=== PATIENT | male | born 1975 | race Caucasian/White ===

== ENCOUNTER 2019-12-02 19:54 | Emergency (ER) | payer MEDICAID ==
[2019-12-02 20:19] VITALS: BP 157/91; PULSE 88
[2019-12-02] MEDS ORDERED: Orphenadrine 100 MG Tab.ER PO ONE (20:32)
[2019-12-02] MEDS ORDERED: HYDROmorphone 1 MG/ML Syringe IM ONE (20:32)
[2019-12-02] MEDS ORDERED: Dexamethasone 10 MG/ML SDV IM ONE (20:32)
--- NOTE | 2019-12-02 20:38 | EDM.PDOC ---
ED HPI GENERAL MEDICAL PROBLEM - General Chief Complaint: Back Pain or Injury Stated Complaint: LOWER BACK AND RIGHT HIP PAIN Time Seen by Provider: 12/02/19 20:17 Source of Information: Reports: Patient, RN Notes Reviewed History Limitations: Reports: No Limitations - History of Present Illness INITIAL COMMENTS - FREE TEXT/NARRATIVE: Patient is a 44-year-old male who presents to the ED for the evaluation of lower back and hip pain. Patient notes that his right lower back and right hip has been painful for the last 5 days, he states that he was just watching TV on Friday, and then he states he could not get up from the couch. A few days prior to this, he does note that he was she rocking his garage, so he was doing a lot of stooping and bending, otherwise he denies any other trauma to the area. Patient notes that he has a sharp shooting pain into his right groin as well. He states that he has been taking handfuls ibuprofen for pain relief however this is not been providing much relief either, he states that he has been to the chiropractor every day for management and also has not been providing much pain relief. He notes that he is scheduled for massage on Friday as well. He denies saddle anesthesia, and is not having any loss of bowel or bladder, he has no abdominal pain. He notes that he is not able to move much at all, as he feels he is just stiff. Further notes he has not been able to get any sleep for the past few nights due to the pain. He notes that he does have a primary care provider, but cannot remember her name and states that she works out of the [facility]. Right Hip Pain Score (Numeric/FACES): 9 - Related Data Allergies Allergy/AdvReac Type Severity Reaction Status Date / Time No Known Allergies Allergy Verified 12/02/19 20:19 Home Meds: Home Meds Orphenadrine [Norflex] 100 mg PO BID PRN #20 tab 12/02/19 [Rx] predniSONE 20 mg PO ASDIRECTED #15 tab 12/02/19 [Rx] Past Medical History Gastrointestinal History: Reports: GERD - Past Surgical History HEENT Surgical History: Reports: Other (See Below) Other HEENT Surgeries/Procedures: reports lump removed from ear Musculoskeletal Surgical History: Reports: Other (See Below) Other Musculoskeletal Surgeries/Procedures:: arm surgery Social & Family History - Family History Family Medical History: Noncontributory - Tobacco Use Smoking Status *Q: Never Smoker ED ROS GENERAL - Review of Systems Review Of Systems: See Below Constitutional: Denies: Fever, Chills Respiratory: Denies: Shortness of Breath Cardiovascular: Denies: Chest Pain GI/Abdominal: Denies: Abdominal Pain, Constipation, Diarrhea, Nausea, Vomiting : Denies: Dysuria, Flank Pain, Frequency, Urgency Musculoskeletal: Reports: Back Pain (R lower back/hip/groin), Muscle Stiffness Skin: Denies: Bruising Neurological: Denies: Numbness, Tingling ED EXAM,LOWER BACK PAIN/INJURY - Physical Exam Exam: See Below Exam Limited By: No Limitations General Appearance: Alert, WD/WN, No Apparent Distress (Pt is sitting in chair in ED room, he appears to be in a moderate amount of pain) Respiratory/Chest: No Respiratory Distress, Lungs Clear, Normal Breath Sounds, No Accessory Muscle Use, Chest Non-Tender Cardiovascular: Normal Peripheral Pulses, Regular Rate, Rhythm, No Edema, No Murmur GI/Abdominal: Normal Bowel Sounds, Soft, Non-Tender, No Distention, No Mass Back Exam: Normal Inspection, Decreased Range of Motion (d/t pain), Muscle Spasm (diffuse throughout right lower back) Extremities: Normal Inspection, Normal Capillary Refill Neurological: Alert, Normal Mood/Affect, Normal Dorsiflexion, Normal Plantar Flexion, Normal Gait, Normal Reflexes, No Motor/Sensory Deficits, Oriented x 3, Straight Leg Raise (R). No: Straight Leg Raise (L), Saddle Anesthesia Psychiatric: Normal Affect, Normal Mood Skin Exam: Warm, Dry, Intact, Normal Color, No Rash Course - Vital Signs Last Recorded V/S: Last Vital Signs Temp 98.4 F 12/02/19 20:16 Pulse 88 12/02/19 20:16 Resp 16 12/02/19 20:16 BP 157/91 H 12/02/19 20:16 Pulse Ox 95 12/02/19 20:16 - Orders/Labs/Meds Meds: Medications Discontinued Medications Generic Name Dose Route Start Last Admin Trade Name Freq PRN Reason Stop Dose Admin Dexamethasone 10 mg 12/02/19 20:32 Dexamethasone IM 12/02/19 20:33 ONETIME ONE Hydromorphone HCl 1 mg 12/02/19 20:32 Dilaudid IM 12/02/19 20:33 ONETIME ONE Orphenadrine Citrate 100 mg 12/02/19 20:32 Norflex PO 12/02/19 20:33 ONETIME ONE - Re-Assessments/Exams Free Text/Narrative Re-Assessment/Exam: 12/02/19 20:38 Patient presents to the ED for the evaluation of lower back pain. I do believe that most of his pain is sciatic in nature, he will get a 10 mg IM dose of dexamethasone, 100 mg p.o. Norflex, and 1 mg IM Dilaudid for initial management. Patient will be prescribed an outpatient burst of prednisone and Norflex as needed for further muscle spasms. Departure - Departure Time of Disposition: 20:38 Disposition: Home, Self-Care 01 Condition: Fair Clinical Impression: Lower back pain Qualifiers: Chronicity: acute Back pain laterality: right Sciatica presence: with sciatica Sciatica laterality: sciatica of right side Qualified Code(s): M54.41 - Lumbago with sciatica, right side - Discharge Information *PRESCRIPTION DRUG MONITORING PROGRAM REVIEWED*: No *COPY OF PRESCRIPTION DRUG MONITORING REPORT IN PATIENT TATA: No Prescriptions: Orphenadrine [Norflex] 100 mg PO BID PRN #20 tab PRN Reason: Spasms predniSONE 20 mg PO ASDIRECTED #15 tab Instructions: Sciatica, [id number] Referrals: PCP,None [Primary Care Provider] - Forms: ED Department Discharge Additional Instructions: You have been evaluated in the ED for your right sided lower back pain. Your symptoms are consistent with Sciatica in nature. You were given a dose of IM steroids, a muscle relaxer, and a pain medication at tonight's visit. You were given a prescription for outpatient steroids, and the muscle relaxer for further pain relief. Prescriptions were electronic prescribed to the [place] [facility] located in the [facility]. Please use ice/heat as tolerated to the affected area. You may take Tylenol 500 mg or ibuprofen 600mg q6 hrs for pain relief. Please do so until you have a tolerable level of pain with activity. Do not exceed 4000mg Tylenol or 3200mg ibuprofen in a 24 hour time period. Please return to ED if your symptoms should change or worsen. Sepsis Event Note - Evaluation Sepsis Screening Result: No Definite Risk - Focused Exam Vital Signs: Vital Signs Temp Pulse Resp BP Pulse Ox 12/02/19 20:16 98.4 F 88 16 157/91 H 95 Date Exam was Performed: 12/02/19 Time Exam was Performed: 20:41
== END 2019-12-02 21:10 | disposition home or self-care (01) ==
LOC: JD.ED 19:54
DX: M54.41 Lumbago with sciatica, right side (principal)
CPT/HCPCS: 96372; 99283; A9270; J1100; J1170

== ENCOUNTER 2023-03-20 16:35 | Emergency (ER) | payer MEDICAID ==
[2023-03-20] MEDS ORDERED: Ondansetron 4 MG/2 ML SDV IVPUSH ONE (17:13)
[2023-03-20] MEDS ORDERED: Iopamidol 612 MG/ML 100 ML Bottle IVPUSH ONE (18:08)
[2023-03-20 19:32] VITALS: BP 120/77; PULSE 84
== END 2023-03-20 19:32 | disposition home or self-care (01) ==
LOC: JD.ED 16:35
DX: R14.1 Gas pain (principal); F17.210 Nicotine dependence, cigarettes, uncomplicated
CPT/HCPCS: 36415; 74177; 80053; 83690; 85025; 86140; 96374; 99284; J2405; Q9967

== ENCOUNTER 2023-03-25 08:54 | Day surgery (SDC) | payer MEDICAID ==
[2023-03-25] MEDS ORDERED: Lactated Ringers 1,000 ML IV SCH (09:30)
[2023-03-25] MEDS ORDERED: fentaNYL 100 MCG/2 ML SDV IVPUSH PRN (10:29)
[2023-03-25] MEDS ORDERED: Ondansetron 4 MG/2 ML SDV IVPUSH PRN (10:29)
[2023-03-25] MEDS ORDERED: Sugammadex Sodium 200 MG/2 ML VIAL ONE (11:11)
[2023-03-25] MEDS ORDERED: Midazolam 1 MG/ML 2 ML SDV ONE (11:14)
[2023-03-25] MEDS ORDERED: Propofol 200 MG/20 ML SDV ONE (11:14)
[2023-03-25] MEDS ORDERED: Lidocaine 1% 2 ML ONE (11:14)
[2023-03-25] MEDS ORDERED: fentaNYL 100 MCG/2 ML SDV ONE (11:15)
[2023-03-25] MEDS ORDERED: Rocuronium 50 MG/5 ML Vial ONE (11:16)
[2023-03-25] MEDS ORDERED: Ondansetron 4 MG/2 ML SDV ONE (12:30)
[2023-03-25 14:39] VITALS: BP 120/60; PULSE 78
== END 2023-03-25 14:15 | disposition home or self-care (01) ==
LOC: JD.SDS 08:54
PROVIDERS: ATTEND Surgery
DX: T85.518A Breakdown (mechanical) of other gastrointestinal prosthetic devices, implants and grafts, initial encounter (principal); F32.A Depression, unspecified; F17.210 Nicotine dependence, cigarettes, uncomplicated; Z79.899 Other long term (current) drug therapy; Z98.890 Other specified postprocedural states
CPT/HCPCS: 43291; J2250; J2405; J2704; J3010; J3490; J7120; 00731